=== PATIENT | female | born 1990 | race Caucasian/White ===

== ENCOUNTER 2023-10-14 10:17 | Outpatient (AMB) | payer OTHER, SELFPAY ==
--- NOTE | 2023-10-14 10:19 | A.OFFVIS_ITS ---
Intake Vital Signs 3 10/14/23 10:36 Height 5 ft 3 in Weight 178 lb BMI 31.5 BP 99/59 L Blood Pressure Location Lt brachial Position Sitting Pulse 72 Intake Visit Reasons: Hidradenitis Suppurativa of left groin Intake Note: Patient is seen in office for evaluation and treatment of hidradenitis suppurative of the left groin. Pt c/o: onset for yrs, area has been inflammed since 04/2023, admits to discharge, white/yellow redness, swelling, has tried injections in the past with minimal relief, using the hibiclens soap and swelling has gone down since Ambulance Paramedic Required: No Accompanied by: Self / Same As Patient Allergies Penicillins Allergy (Mild, Verified 10/14/23 10:26) Hives HPI HPI Comments 2 History of Present Illness0 Details 33-year-old female patient presenting fo r evaluation of a right inguinal hidradenitis. She reports repeated infections over the last 1.5 years without significant improvement. She has been using Hibiclens surgical scrub almost daily which has prevented further spread but continues to have the single area of irritation. Currently she does have some discharge but denies significant pain. She presents today to discuss possible excision of this chronically inflamed area. She denies previous surgery in this location. [facility] Surgical History Hx of cholecystectomy Family History Paternal Grandmother Cervical cancer Social History Alcohol intake: current Alcohol intake frequency: holidays/special occasions only Patient Tobacco Use Status: Never used Tobacco Review of Systems Const All systems reviewed & are unremarkable except as noted in HPI and below Physical Exam Vital Signs: Last Vital Signs Pulse 72 10/14/23 10:36 BP 99/59 L 10/14/23 10:36 BMI result Body Mass Index 31.5 Const General: cooperative and no acute distress Nutritional Appearance: well nourished Orientation/consciousness: patient oriented x3 Limitations: no limitations HEENT Head: Yes normocephalic and Yes atraumatic Ears: hearing grossly normal bilaterally Resp Effort & Inspection: normal respiratory effort, no audible wheezes, no cough and no respiratory distress Cardio Jugular venous distension: no JVD GI Inspection: Yes normal to inspection Skin Other: Warm, dry, no rash Full body images: 2 1. 2 cm area of erythema and induration suggestive of a chronic hidradenitis left groin. No abscess appreciated at this time. Neuro General: patient oriented x3 Extrem General: Yes no clubbing, cyanosis or edema Assessment & Plan Assessment & Plan (1) Hidradenitis suppurativa: Code(s): L73.2 - Hidradenitis suppurativa Plan 33-year-old female patient presenting with complaints of persistent drainage from the left groin found to have an area of chronic inflammation suggestive of hidradenitis. I recommended an excision of this chronically infected tissue to be performed as a short-stay surgery. After discussion of the procedure, risks, and alternatives, she consents to the left groin excision of hidradenitis. Coding Level of Care Code New Pt Level 4 (66490) Diagnoses Hidradenitis suppurativa L73.2
[2023-10-14 10:36] VITALS: BP 99/59; PULSE 72; BMI 31.5
== END 2023-10-14 10:42 | disposition home or self-care (01) ==
PROVIDERS: PCP Physician Assistant Medical; Visit Provider Surgery
DX: L73.2 Hidradenitis suppurativa (principal)
CPT/HCPCS: 99204

== ENCOUNTER → 2023-10-14 10:17 | Outpatient (BNVA) | payer OTHER, SELFPAY | PROVIDERS: PCP Physician Assistant Medical; Visit Provider Surgery ==

== ENCOUNTER 2024-01-04 11:57 | Day surgery (SDC) | payer OTHER, SELFPAY ==
[2023-12-30 13:29] VITALS: BMI 31.5
--- NOTE | 2024-01-03 12:22 | HO.ANESPROP2 ---
Documented by User: Noemy Hills NP 01/03/24 12:23 HPI - Anesthesia Eval Consult details Narrative: 33yo F for Left Excision Hidradenitis Groin PMFSH Active Problems Active Problems: All Active Problems Hidradenitis suppurativa (Acute) Past Medical History Medical History IUD (intrauterine device) in place SVT (supraventricular tachycardia) Family History Family History Paternal Grandmother Cervical cancer Surgical History Surgical History History of radiofrequency ablation procedure for cardiac arrhythmia Hx of cholecystectomy Social History Social History Alcohol intake: current Alcohol intake frequency: holidays/special occasions only Patient Tobacco Use Status: Current someday Tobacco user Use of substances other than those prescribed or required for medical reasons: Yes Are you DNR?: No Advance Directives: No Advance Directives Information Provided: Yes Meds Allergies Allergy/AdvReac Type Severity Reaction Status Date / Time Penicillins Allergy Mild Hives Verified 10/14/23 10:26 Home Medications ?Medication ?Instructions ?Recorded ?Confirmed ?Last Taken ?Type magnesium 01/04/24 01/04/24 Unknown History Exam Height,Weight and Vital Signs: Height 5 ft 3 in Weight 80.739 kg Assessment and Plan Assessment Anesthesia Assessment: Chart Reviewed Documented by User: Terri Armando MD 01/04/24 13:40 PMFSH Past Medical History Medical History IUD (intrauterine device) in place SVT (supraventricular tachycardia) Family History Family History Paternal Grandmother Cervical cancer Surgical History Surgical History History of radiofrequency ablation procedure for cardiac arrhythmia Hx of cholecystectomy History of Problems with Anesthesia: No Social History Social History Alcohol intake: current Alcohol intake frequency: holidays/special occasions only Patient Tobacco Use Status: Current someday Tobacco user Use of substances other than those prescribed or required for medical reasons: Yes Are you DNR?: No Advance Directives: No Advance Directives Information Provided: Yes Meds Allergies Allergy/AdvReac Type Severity Reaction Status Date / Time Penicillins Allergy Mild Hives Verified 10/14/23 10:26 Home Medications ?Medication ?Instructions ?Recorded ?Confirmed ?Last Taken ?Type magnesium 01/04/24 01/04/24 Unknown History Exam Airway Mallampati Class: II TM Dist: >3cm Neck ROM: Full Loose/Missing/Broken Teeth: No Heart: RRR Lungs: CTA Assessment and Plan Assessment Anesthesia Assessment: Anesthesia Plan Discussed Final Anesthetic Review History of Problems with Anesthesia: No NPO: Yes ASA Class: II Final Preanesthetic Review: Meds/Allgs Chart Reviewed, Consent Obtained/Reviewed and Anes Risks/Benef Reviewed Patient Risk: Low Procedure Risk: Low Anesthetic Plan Anesthetic Plan: GA Disposition: Standard PACU
[2024-01-04] VITALS (7 sets, daily range): BP systolic 94–110; BP diastolic 57–66; PULSE 69–101; RESP 12–16; TEMP 36.6–37; O2SAT 97–100; BMI 32.8
[2024-01-04 12:49] LABS: Urine Pregnancy NEGATIVE (NEGATIVE)
[2024-01-04 12:50] LABS: UPreg QC Valid YES
[2024-01-04] MEDS: Lactated Ringers 1,000 ML 100 ML IVCONT (13:11)
[2024-01-04] MEDS: vancomycin HCL 1,500 MG in 0.9 % Sodium Chloride 500 ML 333.33 MG IV (13:13)
--- NOTE | 2024-01-04 13:42 | MHC.SHP ---
Pre-Procedural Eval Section A - 24 Hr Update-Section A only Date of Service: 01/04/24 The patient is an INPATIENT: No Changes since office visit: Yes Patient answered all questions; No Cold of Flu in the past 2 weeks, No New Medical Problems and No Changes in Medication The patient has been examined within 24 hours of the surgical procedure. The History & Physical has been completed within 30 days and I have reviewed it.: Yes Section B - Complete if H&P > 30 days Chief Complaint: Hidradenitis suppurativa Details of Present Illness: no changes from previous evaluation Relevant Family History (Specify if Yes): No Relevant Social History: None Present Medications: None Medical History: No relevant PMH History of Previous Operations: No relevant previous surgery Allergies: Allergies Allergy/AdvReac Type Severity Reaction Status Date / Time Penicillins Allergy Mild Hives Verified 10/14/23 10:26 Review of Systems Sugical H&P ROS: Negative: Constitution, Cardiovascular, Respiratory, Neurological, Psychiatric, Hem-Onc, Allergic/Immunologic, Gastrointestinal, Genitourinary, Musculoskeletal, Integumentary, Endocrine and Eyes/Ears/Nose/Throat Exam Surgical H&P Exam: Normal: HEENT, Normal: Heart, Normal: Lungs, Normal: Extremities, Normal: Abdomen, Normal: Skin and Normal: Neurological Plan Diagnosis/Plan: Unchanged I have reviewed the history and physical and performed a pertinent physical examination on my patient. No changes have occurred unless specified. Time Spent With Patient Time: Total time managing care of this patient today ____ minutes.
--- NOTE | 2024-01-04 14:24 | P.OP_ITS ---
Operative Note Operative Note Date of Service: 01/04/24 Narrative: Preoperative diagnosis: Hidradenitis left groin Postoperative diagnosis: Same Procedure: Excision of hidradenitis left groin Surgeon: Kirby Card MD Supervisor Scrap Preparation: Kesha Nolen PA-C Anesthesia: General LMA Indications for procedure: 33-year-old female patient presenting with complaints of recurring infections in the right groin due to hidradenitis. On examination she has an area measuring approximately 3 by 2 cm located in the left groin just above the leg crease. Gentle pressure produces a small amount of purulent discharge. She presents today for wide excision to prevent further infections. Operative findings: 3 x 2 cm area of chronic inflammation consistent with hidradenitis. Hidradenitis extended approximately 2 cm below the skin into the subcutaneous tissue. Specimen: Hidradenitis left groin Estimated blood loss: 2 cc Complications: None Procedure details: Patient was brought to the OR and placed in a supine position. After administering general anesthesia, the patient's groin and upper leg was prepped with Betadine and draped in a sterile fashion. A surgical time- out was called the consent confirmed. Patient received preoperative antibiotics and Venodyne boots were in place. Local anesthesia consisting of 0.5% Sensorcaine was then infiltrated circumferentially around the area of hidradenitis. Elliptical incision then created using a 15 blade around the area of hidradenitis. This was carried out through subcutaneous tissue and around the area of infection. The specimen was passed off the table and sent to pathology for further examination. Hemostasis was assured using electrocautery. Wounds were then irrigated with saline solution and suctioned dry. Deep subcutaneous tissue was then reapproximated using interrupted 3-0 Polysorb sutures. Dermis was reapproximated using interrupted 3-0 Polysorb sutures. Skin was closed using a running subcuticular 4-0 Polysorb suture. Steri-Strips, 2 x 2 gauze and Tegaderm were then applied. The patient tolerated the procedure well. Sponge, instrument, and needle counts reported as correct. The patient was transferred to PACU in stable condition.
== END 2024-01-04 15:33 | disposition home or self-care (01) ==
PROVIDERS: Visit Provider Surgery
PROC: (CPT 11462; principal; 2024-01-04 14:00)
DX: L73.2 Hidradenitis suppurativa (principal); I47.10 Supraventricular tachycardia, unspecified; Z97.5 Presence of (intrauterine) contraceptive device; Z79.899 Other long term (current) drug therapy; Z88.0 Allergy status to penicillin; Z90.49 Acquired absence of other specified parts of digestive tract; F17.200 Nicotine dependence, unspecified, uncomplicated
CPT/HCPCS: 11462; 81025; 88305; J1100; J2250; J2405; J2704; J2795; J3010; J3371

== ENCOUNTER → 2024-01-04 11:57 | Outpatient (BNV) | payer OTHER, SELFPAY | PROVIDERS: Visit Provider Surgery | DX: L73.2 Hidradenitis suppurativa (principal) | CPT/HCPCS: 11462 ==

== ENCOUNTER 2024-01-13 09:43 | Outpatient (AMB) | payer OTHER, SELFPAY ==
--- NOTE | 2024-01-13 09:46 | A.OFFVIS_ITS ---
Vital Signs 01/13/24 09:50 Height 53 ft Weight 180 lb BMI 0.3 BP 109/72 Blood Pressure Location Lt brachial Position Sitting Pulse 70 Intake Visit Reasons: S/P excision hidradenitis Lt groin Intake Note: Patient is seen in office for post op assessment post excision hidradenitis left groin. Pt c/o: admits to sore, denies redness or discharge Allergies Penicillins Allergy (Mild, Verified 01/13/24 09:51) Hives HPI Comments Details: 33-year-old female patient returning 1 week following excision of hidradenitis of the left groin. She tolerated the procedure well but does have some soreness in the left groin. He denies any bleeding or discharge from the skin. [facility] Medical History IUD (intrauterine device) in place SVT (supraventricular tachycardia) Surgical History Hx of excision of mass (01/04/24) History of radiofrequency ablation procedure for cardiac arrhythmia Hx of cholecystectomy Family History Paternal Grandmother Cervical cancer Social History Alcohol intake: current Alcohol intake frequency: holidays/special occasions only Patient Tobacco Use Status: Current someday Tobacco user Physical Exam Vital Signs: Last Vital Signs Pulse 70 01/13/24 09:50 BP 109/72 01/13/24 09:50 BMI result Body Mass Index 0.3 Const General: comfortable Nutritional Appearance: well nourished Orientation/consciousness: patient oriented x3 Resp Effort & Inspection: normal respiratory effort GI Other: Incision in the left groin is clean, dry, and intact with intact Steri-Strips. No redness or discharge is noted. Neuro General: patient oriented x3 Assessment & Plan Assessment & Plan (1) Hidradenitis suppurativa: Code(s): L73.2 - Hidradenitis suppurativa Category: Medical Plan 33-year-old female patient with hidradenitis of left groin. She tolerated the excision well in the wounds are healing nicely. She should follow up as needed. Coding Level of Care Code Global (38315) Diagnoses Hidradenitis suppurativa L73.2
[2024-01-13 09:50] VITALS: BP 109/72; PULSE 70
== END 2024-01-13 09:59 | disposition home or self-care (01) ==
PROVIDERS: Visit Provider Surgery
DX: L73.2 Hidradenitis suppurativa (principal)
CPT/HCPCS: 99024

== ENCOUNTER → 2024-01-13 09:43 | Outpatient (BNVA) | payer OTHER, SELFPAY | PROVIDERS: Visit Provider Surgery ==